=== PATIENT | female | born 1940 | race Caucasian/White ===

== ENCOUNTER 2016-10-15 13:42 | Inpatient (IN) | payer MEDICAID, MEDICARE, OTHER ==
[~2016-10-15] VITALS: Ht 147.3 cm; Wt 46.7 kg
[~2016-10-15 13:42] MED LIST: AMLO10TA80 PO; ASCO100T12 PO; ASPI-1158 PO; FERROUS SULFATE PO; GLIM4TAB2 PO; INSLAN SQ; INSU10VI5 SQ; NITR0.4T3 SL; PANT40TA4 PO; SEVE800T PO; SIMVASTATIN PO; TRAMADOL PO
[2016-10-15] MEDS ORDERED: MORPHINE SULFATE 4 MG/ML CPJ (NOT FOR IM USE) IV STA (15:04)
[2016-10-15] MEDS ORDERED: ONDANSETRON HCL 4MG/2ML VIAL IV STA (15:04)
[2016-10-15] MEDS ORDERED: FAMOTIDINE 20MG/2ML VIAL IV STA (15:04)
[2016-10-15 15:35] LABS: INR 1.1
[2016-10-15 15:36] LABS: CHLORIDE 95 mEq/L (98-107)
[2016-10-15 15:37] LABS: HEMATOCRIT. 32.6 % (36.0-48.0); HEMOGLOBIN. 10.9 g/dL (12.0-16.0); MEAN CORPUSCULAR HEMOGLOBIN 32.9 pg (28.0-32.0); MEAN CORPUSCULAR VOLUME 98.1 fL (81.0-99.0); MEAN PLATELET VOLUME 7.8 fl (7.4-10.4); PLATELET 253 x1000/uL (130-400); RED BLOOD CELL COUNT 3.32 mill/uL (4.2-5.4); RED CELL DISTRIBUTION WIDTH 14.6 % (11.6-14.6)
[2016-10-15 15:38] LABS: CARBON DIOXIDE 28 mEq/L (21-32); ETHANOL BLOOD < 10 mg/dL
[2016-10-15 15:45] LABS: TROPONIN I 0.04 ng/mL (0.00-0.04)
[2016-10-15 16:23] LABS: CLARITY URINE CLEAR (CLEAR); COLOR URINE YELLOW (YELLOW); GLUCOSE URINE NEGATIVE (NEGATIVE); KETONES URINE NEGATIVE (NEGATIVE); LEUKOCYTE ESTERASE URINE NEGATIVE (NEGATIVE); NITRITE URINE NEGATIVE (NEGATIVE); OCCULT BLOOD URINE NEGATIVE (NEGATIVE); PROTEIN URINE 2+ (NEGATIVE); UROBILINOGEN URINE 0.2 E.U./dL (0.2-1.0)
[2016-10-15 16:44] LABS: PLATELET ESTIMATE NORMAL
[2016-10-15 20:35] VITALS: BP 147/56
[2016-10-15] MEDS: BLOOD SUGAR DIAGNOSTIC STRIP TEST SCH (21:30)
[2016-10-15] MEDS ORDERED: DEXTROSE 50% WATER 50ML SYRINGE IV PRN (21:30)
[2016-10-15 21:56] VITALS: BP 147/56
[2016-10-15] MEDS: ONDANSETRON HCL 4MG/2ML VIAL IV PRN (22:10)
[2016-10-15] MEDS ORDERED: PANTOPRAZOLE 40MG DR TABLET PO SCH (22:15)
[2016-10-15] MEDS ORDERED: ACETAMINOPHEN 325MG TABLET PO PRN (22:30)
[2016-10-15] MEDS ORDERED: MORPHINE SULFATE 2 MG/ML CPJ (NOT FOR IM USE) IV PRN (22:30)
[2016-10-15] MEDS: SODIUM CHLORIDE 0.9% 1,000 ML IV SCH (23:19)
[2016-10-15] MEDS: ENOXAPARIN 30MG/0.3ML SYR SUBCUT SCH (23:19)
[2016-10-15] MEDS: PANTOPRAZOLE SODIUM 40 MG/VIAL IV SCH (23:19)
[2016-10-16] VITALS: BP 146/71
[2016-10-16] MEDS: ALBUTEROL (0.083%) 2.5MG/3ML NEB HHN SCH ×4 (02:10→20:20)
[2016-10-16 04:00] VITALS: BP 139/57
[2016-10-16] MEDS: BLOOD SUGAR DIAGNOSTIC STRIP TEST SCH ×4 (05:59→21:32)
[2016-10-16 07:19] LABS: CARBON DIOXIDE 25 mEq/L (21-32); CHLORIDE 98 mEq/L (98-107); CREATINE KINASE 54 IU/L (26-192); HDL CHOLESTEROL 62 mg/dL (40-59); LDL CHOLESTEROL 46 mg/dL (5-100)
[2016-10-16 07:26] LABS: CREATINE KINASE MB FRACTION 4.3 ng/mL (0.5-3.6); TROPONIN I 0.04 ng/mL (0.00-0.04)
[2016-10-16 07:39] LABS: BASOPHILS % 0.4 % (0.0-2.0); EOSINOPHILS % 5.9 % (0.0-5.0); HEMATOCRIT. 27.8 % (36.0-48.0); HEMOGLOBIN. 9.3 g/dL (12.0-16.0); LYMPHOCYTES % 10.9 % (20.0-50.0); MEAN CORPUSCULAR HEMOGLOBIN 33.4 pg (28.0-32.0); MEAN CORPUSCULAR VOLUME 99.4 fL (81.0-99.0); MONOCYTES % 12.1 % (2.0-8.0); NEUTROPHILS % 70.7 % (40.0-76.0); PLATELET 216 x1000/uL (130-400); RED CELL DISTRIBUTION WIDTH 14.4 % (11.6-14.6)
[2016-10-16 08:00] VITALS: BP 123/38
[2016-10-16] MEDS: INSULIN LISPRO 100 UNITS/ML SUBCUT SCH ×4 (08:10→21:00)
[2016-10-16] MEDS: ASPIRIN 81MG TABLET PO SCH (09:00)
[2016-10-16] MEDS: ENOXAPARIN 30MG/0.3ML SYR SUBCUT SCH (09:00)
[2016-10-16 12:00] VITALS: BP 148/70
[2016-10-16] MEDS: PANTOPRAZOLE SODIUM 40 MG/VIAL IV SCH (12:55)
[2016-10-16] MEDS: ONDANSETRON HCL 4MG/2ML VIAL IV PRN (12:55)
[2016-10-16 16:00] VITALS: BP 129/52
[2016-10-16 16:24] LABS: CREATINE KINASE MB FRACTION 4.1 ng/mL (0.5-3.6); TROPONIN I 0.03 ng/mL (0.00-0.04)
[2016-10-16 20:00] VITALS: BP 112/54
[2016-10-16] MEDS ORDERED: EPOETIN ALFA 4000UNITS/ML VIAL SUBCUT SCH (21:00)
[2016-10-17] VITALS: BP 145/84
[2016-10-17] MEDS: ALBUTEROL (0.083%) 2.5MG/3ML NEB HHN SCH ×4 (00:14→21:11)
[2016-10-17 04:00] VITALS: BP 126/50
[2016-10-17] MEDS: SODIUM CHLORIDE 0.9% 1,000 ML IV SCH (05:52)
[2016-10-17] MEDS: BLOOD SUGAR DIAGNOSTIC STRIP TEST SCH ×4 (05:53→20:15)
[2016-10-17 08:00] VITALS: BP 148/58
[2016-10-17] MEDS: PANTOPRAZOLE SODIUM 40 MG/VIAL IV SCH (10:33)
[2016-10-17] MEDS: ENOXAPARIN 30MG/0.3ML SYR SUBCUT SCH (10:33)
[2016-10-17] MEDS: ASPIRIN 81MG TABLET PO SCH (10:33)
[2016-10-17] MEDS: INSULIN LISPRO 100 UNITS/ML SUBCUT SCH ×4 (10:35→20:26)
[2016-10-17 12:00] VITALS: BP 150/79
[2016-10-17 16:00] VITALS: BP 139/74
[2016-10-17 20:00] VITALS: BP 150/60
[2016-10-18] VITALS: BP 135/50
[2016-10-18] MEDS: ALBUTEROL (0.083%) 2.5MG/3ML NEB HHN SCH ×3 (01:19→15:04)
[2016-10-18 04:00] VITALS: BP 138/59
[2016-10-18 05:28] LABS: HEMATOCRIT. 27.4 % (36.0-48.0); HEMOGLOBIN. 9.2 g/dL (12.0-16.0); MEAN CORPUSCULAR HEMOGLOBIN 33.5 pg (28.0-32.0); MEAN CORPUSCULAR VOLUME 99.3 fL (81.0-99.0); MEAN PLATELET VOLUME 7.7 fl (7.4-10.4); PLATELET 202 x1000/uL (130-400); RED BLOOD CELL COUNT 2.75 mill/uL (4.2-5.4); RED CELL DISTRIBUTION WIDTH 14.4 % (11.6-14.6)
[2016-10-18] MEDS: BLOOD SUGAR DIAGNOSTIC STRIP TEST SCH ×3 (07:40→17:40)
[2016-10-18 08:00] VITALS: BP 150/62
[2016-10-18] MEDS: INSULIN LISPRO 100 UNITS/ML SUBCUT SCH ×3 (08:10→17:47)
[2016-10-18] MEDS: ASPIRIN 81MG TABLET PO SCH (09:08)
[2016-10-18] MEDS: PANTOPRAZOLE SODIUM 40 MG/VIAL IV SCH (09:08)
[2016-10-18] MEDS: ENOXAPARIN 30MG/0.3ML SYR SUBCUT SCH (09:09)
[2016-10-18 11:57] LABS: PLATELET ESTIMATE NORMAL
[2016-10-18 12:00] VITALS: BP 153/55
[2016-10-18 16:00] VITALS: BP 148/56
[2016-10-18 19:19] VITALS: BP 122/56
== END 2016-10-18 20:10 | disposition home or self-care (01) | DRG 194 ==
LOC: ER 14:46 → EDBEDREQ 15:14 → EDBEDREQTM 17:53 → ENRESERV 19:47 → 7WST 20:38
PROVIDERS: ADMIT Internal Medicine; ATTEND Internal Medicine
PROC: 5A1D60Z (ICD-10-PCS; principal; 2016-10-16)
DX: I13.2 Hypertensive heart and chronic kidney disease with heart failure and with stage 5 chronic kidney disease, or end stage renal disease (principal); N18.6 End stage renal disease; E11.21 Type 2 diabetes mellitus with diabetic nephropathy; E11.22 Type 2 diabetes mellitus with diabetic chronic kidney disease; I48.92 Unspecified atrial flutter; E11.43 Type 2 diabetes mellitus with diabetic autonomic (poly)neuropathy; K31.84 Gastroparesis; J44.9 Chronic obstructive pulmonary disease, unspecified; I50.9 Heart failure, unspecified; I25.10 Atherosclerotic heart disease of native coronary artery without angina pectoris; I48.91 Unspecified atrial fibrillation; D50.0 Iron deficiency anemia secondary to blood loss (chronic); I70.0 Atherosclerosis of aorta; K83.8 Other specified diseases of biliary tract; E11.51 Type 2 diabetes mellitus with diabetic peripheral angiopathy without gangrene; Z99.2 Dependence on renal dialysis; Z86.73 Personal history of transient ischemic attack (TIA), and cerebral infarction without residual deficits; Z90.49 Acquired absence of other specified parts of digestive tract
CPT/HCPCS: 36415; 71010; 74176; 74181; 76700; 80048; 80053; 80061; 81001; 82550; 82553; 82962; 83605; 83690; 83880; 84443; 84484; 85025; 85610; 87040; 93005; 94640; 94664; 96374; 96375; 99285; C9113; G0482; J0885; J1650; J1815; J2270; J2405; J3490; J7030; J7611

== ENCOUNTER 2016-11-09 13:39 | Observation (INO) | payer OTHER ==
[~2016-11-09] VITALS: Ht 152.4 cm; Wt 49.0 kg
[2016-11-09 16:59] LABS: D-DIMER 1.8 mg/L FEU (<0.50); INR 1.1; PROTHROMBIN TIME 11.1 sec
[2016-11-09 17:02] LABS: CARBON DIOXIDE 32 mEq/L (21-32); CHLORIDE 95 mEq/L (98-107)
[2016-11-09 17:11] LABS: BASOPHILS % 0.6 % (0.0-2.0); HEMATOCRIT. 34.8 % (36.0-48.0); HEMOGLOBIN. 11.5 g/dL (12.0-16.0); LYMPHOCYTES % 16.8 % (20.0-50.0); MEAN CORPUSCULAR HEMOGLOBIN 33.2 pg (28.0-32.0); MEAN CORPUSCULAR VOLUME 100.1 fL (81.0-99.0); MEAN PLATELET VOLUME 7.5 fl (7.4-10.4); MONOCYTES % 11.8 % (2.0-8.0); NEUTROPHILS % 68.8 % (40.0-76.0); PLATELET 199 x1000/uL (130-400); RED BLOOD CELL COUNT 3.47 mill/uL (4.2-5.4); RED CELL DISTRIBUTION WIDTH 14.2 % (11.6-14.6)
[2016-11-09 20:00] VITALS: BP 161/78
[2016-11-09 21:00] VITALS: BP 129/79
[2016-11-09 22:30] VITALS: BP 129/79
[2016-11-09] MEDS ORDERED: ONDANSETRON HCL 4MG/2ML VIAL IV PRN (23:45)
[2016-11-09] MEDS ORDERED: ACETAMINOPHEN 650MG/20.3ML UDC GT PRN (23:45)
[2016-11-10] VITALS (7 sets, daily range): BP systolic 118–163; BP diastolic 67–97
[2016-11-10] MEDS ORDERED: DEXTROSE 50% WATER 50ML SYRINGE IV PRN
[2016-11-10] MEDS ORDERED: HYDROCODONE/ACETAMINOPHEN 5/325MG TABLET PO PRN ×2 (00:15)
[2016-11-10] MEDS ORDERED: NITROGLYCERIN 0.4MG TABLET SL SL PRN (00:15)
[2016-11-10] MEDS ORDERED: TRAMADOL 50MG TABLET PO PRN (00:30)
[2016-11-10] MEDS ORDERED: CEFTRIAXONE 1 G PREMIX 50 ML IV SCH (02:00)
[2016-11-10] MEDS ORDERED: VANCOMYCIN 1 G PREMIX 200 ML IV NR (03:00)
[2016-11-10 06:49] LABS: BASOPHILS % 0.5 % (0.0-2.0); EOSINOPHILS % 1.8 % (0.0-5.0); HEMATOCRIT. 32.2 % (36.0-48.0); HEMOGLOBIN. 10.7 g/dL (12.0-16.0); LYMPHOCYTES % 16.8 % (20.0-50.0); MEAN CORPUSCULAR HEMOGLOBIN 33.3 pg (28.0-32.0); MEAN PLATELET VOLUME 8.2 fl (7.4-10.4); MONOCYTES % 9.9 % (2.0-8.0); PLATELET 176 x1000/uL (130-400); RED BLOOD CELL COUNT 3.22 mill/uL (4.2-5.4); RED CELL DISTRIBUTION WIDTH 14.1 % (11.6-14.6)
[2016-11-10] MEDS: BLOOD SUGAR DIAGNOSTIC STRIP TEST SCH ×3 (07:21→17:20)
[2016-11-10 08:29] LABS: CARBON DIOXIDE 26 mEq/L (21-32); CHLORIDE 95 mEq/L (98-107)
[2016-11-10] MEDS: INSULIN LISPRO 100 UNITS/ML SUBCUT SCH ×3 (08:47→17:50)
[2016-11-10] MEDS: SEVELAMER CARBONATE 800 MG TABLET PO SCH ×3 (08:47→18:46)
[2016-11-10] MEDS: FERROUS SULFATE 325MG TABLET PO SCH ×2 (08:48→18:46)
[2016-11-10] MEDS ORDERED: GLIMEPIRIDE 4MG TABLET PO SCH (09:00)
[2016-11-10] MEDS ORDERED: PANTOPRAZOLE 40MG DR TABLET PO SCH (09:00)
[2016-11-10] MEDS ORDERED: ASCORBIC ACID 250 MG TABLET PO SCH (09:00)
[2016-11-10] MEDS ORDERED: ASPIRIN 81MG EC TABLET PO SCH (09:00)
[2016-11-10] MEDS ORDERED: AMLODIPINE 10MG TABLET PO SCH (09:00)
[2016-11-10] MEDS ORDERED: INSULIN DETEMIR UD 100 UNITS/ML SYR SUBCUT SCH (10:00)
[2016-11-10] MEDS ORDERED: ATORVASTATIN CALCIUM 10MG TABLET PO SCH (21:00)
== END 2016-11-10 23:44 | disposition home or self-care (01) ==
LOC: ER 15:33 → EDBEDREQTM 19:36 → EDBEDREQ 19:36 → ENRESERV 19:51 → INTOOBSV 21:00 → 6WST 21:00
PROVIDERS: ADMIT Internal Medicine; ATTEND Internal Medicine
DX: T82.868A Thrombosis due to vascular prosthetic devices, implants and grafts, initial encounter (principal); E11.22 Type 2 diabetes mellitus with diabetic chronic kidney disease; I12.0 Hypertensive chronic kidney disease with stage 5 chronic kidney disease or end stage renal disease; N18.6 End stage renal disease; D63.1 Anemia in chronic kidney disease; Y83.2 Surgical operation with anastomosis, bypass or graft as the cause of abnormal reaction of the patient, or of later complication, without mention of misadventure at the time of the procedure; Z86.73 Personal history of transient ischemic attack (TIA), and cerebral infarction without residual deficits; Z99.2 Dependence on renal dialysis
CPT/HCPCS: 36415; 71010; 80053; 82962; 83036; 85025; 85379; 85610; 85730; 87040; 93005; 93971; 96365; 96367; 96368; 96372; 99285; G0378; J0696; J1815; J3370; J7030; J7050; 96366

== ENCOUNTER 2017-04-15 13:07 | Inpatient (IN) | payer MEDICAID, OTHER ==
[~2017-04-15] VITALS: Ht 149.9 cm; Wt 43.1 kg
[~2017-04-15 13:07] MED LIST changes: -NITR0.4T3 SL; +NITR0.4T49 SL; +REN800 PO; -SEVE800T PO
[2017-04-15] MEDS ORDERED: MORPHINE SULFATE 4 MG/ML CPJ (NOT FOR IM USE) IV STA (14:50)
[2017-04-15] MEDS ORDERED: ONDANSETRON HCL 4MG/2ML VIAL IV STA (14:50)
[2017-04-15] MEDS ORDERED: MORPHINE SULFATE 10 MG/ML CPJ IV NR (15:15)
[2017-04-15 15:21] LABS: BASOPHILS % 0.7 % (0.0-2.0); EOSINOPHILS % 0.9 % (0.0-5.0); HEMATOCRIT. 31.5 % (36.0-48.0); HEMOGLOBIN. 10.7 g/dL (12.0-16.0); LYMPHOCYTES % 12.1 % (20.0-50.0); MEAN CORPUSCULAR HEMOGLOBIN 33.2 pg (28.0-32.0); MEAN CORPUSCULAR VOLUME 97.9 fL (81.0-99.0); MEAN PLATELET VOLUME 7.6 fl (7.4-10.4); MONOCYTES % 12.2 % (2.0-8.0); NEUTROPHILS % 74.1 % (40.0-76.0); PLATELET 184 x1000/uL (130-400); RED BLOOD CELL COUNT 3.21 mill/uL (4.2-5.4); RED CELL DISTRIBUTION WIDTH 13.5 % (11.6-14.6)
[2017-04-15 15:23] LABS: PROTHROMBIN TIME 10.7 sec (9.4-11.6)
[2017-04-15 15:24] LABS: CHLORIDE 97 mEq/L (98-107)
[2017-04-15 15:29] LABS: CARBON DIOXIDE 29 mEq/L (21-32)
[2017-04-15 17:56] LABS: CLARITY URINE CLEAR (CLEAR); COLOR URINE YELLOW (YELLOW); GLUCOSE URINE NEGATIVE (NEGATIVE); KETONES URINE NEGATIVE (NEGATIVE); LEUKOCYTE ESTERASE URINE TRACE (NEGATIVE); NITRITE URINE NEGATIVE (NEGATIVE); OCCULT BLOOD URINE NEGATIVE (NEGATIVE); PH URINE 6.5 (4.5-8.0); PROTEIN URINE 2+ (NEGATIVE); SPECIFIC GRAVITY URINE 1.011 (1.005-1.030); UROBILINOGEN URINE 0.2 E.U./dL (0.2-1.0)
[2017-04-15 20:30] VITALS: BP 166/60
[2017-04-15] MEDS ORDERED: MAGNESIUM/ALUMINUM HYDROXIDE/SIMETHICONE 30ML UDC PO PRN (23:30)
[2017-04-15] MEDS ORDERED: IPRATROPIUM/ALBUTEROL 0.5-3(2.5)MG/3ML NEB INH PRN (23:30)
[2017-04-15] MEDS ORDERED: GUAIFENESIN 200MG/10ML SUGAR FREE UDC PO PRN (23:30)
[2017-04-15] MEDS ORDERED: ACETAMINOPHEN 325MG TABLET PO PRN (23:30)
[2017-04-15] MEDS ORDERED: DIPHENHYDRAMINE 50MG/ML VIAL IV PRN (23:30)
[2017-04-15] MEDS ORDERED: ONDANSETRON HCL 4MG/2ML VIAL IV PRN (23:30)
[2017-04-15] MEDS ORDERED: DEXTROSE 50% WATER 50ML SYRINGE IV PRN (23:30)
[2017-04-15] MEDS ORDERED: CLONIDINE 0.1MG TABLET PO PRN (23:30)
[2017-04-16] VITALS (7 sets, daily range): BP systolic 136–151; BP diastolic 43–59
[2017-04-16] MEDS: HYDROCODONE/ACETAMINOPHEN 5/325MG TABLET PO PRN ×4 (01:04→17:32)
[2017-04-16] MEDS: SODIUM CHLORIDE 0.9% INJ 3ML FLUSH IVF SCH ×2 (06:01→13:24)
[2017-04-16] MEDS: BLOOD SUGAR DIAGNOSTIC STRIP TEST SCH ×4 (07:38→20:54)
[2017-04-16] MEDS: INSULIN LISPRO 100 UNITS/ML SUBCUT SCH ×4 (07:38→20:53)
[2017-04-16] MEDS ORDERED: GLIMEPIRIDE 4MG TABLET PO SCH (08:10)
[2017-04-16] MEDS: ACYCLOVIR 400 MG TABLET PO SCH ×3 (08:21→17:31)
[2017-04-16] MEDS ORDERED: AMLODIPINE 10MG TABLET PO SCH (09:00)
[2017-04-16] MEDS ORDERED: ASPIRIN 81MG EC TABLET PO SCH (09:00)
== END 2017-04-16 21:55 | disposition home or self-care (01) | DRG 383 ==
LOC: ER 13:39 → 7WST 16:52 → ENRESERV 18:44
PROVIDERS: ADMIT Internal Medicine; ATTEND Internal Medicine
DX: B02.9 Zoster without complications (principal); I12.0 Hypertensive chronic kidney disease with stage 5 chronic kidney disease or end stage renal disease; N18.6 End stage renal disease; E11.22 Type 2 diabetes mellitus with diabetic chronic kidney disease; D64.9 Anemia, unspecified; K57.90 Diverticulosis of intestine, part unspecified, without perforation or abscess without bleeding; Z86.73 Personal history of transient ischemic attack (TIA), and cerebral infarction without residual deficits; Z90.49 Acquired absence of other specified parts of digestive tract; Z99.2 Dependence on renal dialysis; Z79.899 Other long term (current) drug therapy; Z79.82 Long term (current) use of aspirin; Z79.4 Long term (current) use of insulin
CPT/HCPCS: 36415; 71010; 74176; 80053; 81001; 82962; 83605; 83690; 85025; 85610; 93970; 96374; 96375; 99285; J1815; J2270; J2405

== ENCOUNTER 2017-04-20 18:24 | Emergency (ER) | payer MEDICAID ==
[~2017-04-20] VITALS: Ht 147.3 cm; Wt 45.0 kg
[2017-04-20] MEDS ORDERED: MORPHINE SULFATE 10 MG/ML CPJ IM ONE (19:30)
[2017-04-20] MEDS ORDERED: KETOROLAC 30MG/ML VIAL IM ONE (19:30)
[2017-04-21 10:43] VITALS: BP 142/83
== END 2017-04-21 10:45 | disposition home or self-care (01) ==
LOC: ER 18:26
DX: M13.852 Other specified arthritis, left hip (principal); G89.29 Other chronic pain; M79.651 Pain in right thigh; I12.0 Hypertensive chronic kidney disease with stage 5 chronic kidney disease or end stage renal disease; E11.22 Type 2 diabetes mellitus with diabetic chronic kidney disease; N18.6 End stage renal disease; E78.00 Pure hypercholesterolemia, unspecified; Z79.82 Long term (current) use of aspirin; Z79.4 Long term (current) use of insulin; Z99.2 Dependence on renal dialysis
CPT/HCPCS: 73502; 96372; 99284; J1885; J2270; Z7610

== ENCOUNTER 2017-05-04 15:20 | Emergency (ER) | payer MEDICAID ==
[~2017-05-04] VITALS: Ht 152.4 cm; Wt 48.0 kg
[2017-05-04 18:33] LABS: HEMATOCRIT. 29.8 % (36.0-48.0); HEMOGLOBIN. 9.9 g/dL (12.0-16.0); MEAN CORPUSCULAR HEMOGLOBIN 33.4 pg (28.0-32.0); MEAN CORPUSCULAR VOLUME 100.5 fL (81.0-99.0); MEAN PLATELET VOLUME 7.9 fl (7.4-10.4); PLATELET 206 x1000/uL (130-400); RED BLOOD CELL COUNT 2.96 mill/uL (4.2-5.4); RED CELL DISTRIBUTION WIDTH 14.9 % (11.6-14.6)
[2017-05-04 18:38] LABS: PARTIAL THROMBOPLASTIN TIME 26.1 sec (23.4-31.0); PROTHROMBIN TIME 10.8 sec (9.4-11.6)
[2017-05-04 18:44] LABS: CARBON DIOXIDE 29 mEq/L (21-32); CHLORIDE 96 mEq/L (98-107); PHOSPHORUS 3.4 mg/dL (2.5-4.9)
[2017-05-04 18:48] LABS: TROPONIN I 0.02 ng/mL (0.00-0.04)
[2017-05-04 19:09] LABS: PLATELET ESTIMATE NORMAL
[2017-05-05 01:09] VITALS: BP 148/53
== END 2017-05-05 01:11 | disposition home or self-care (01) ==
LOC: ER 15:29
DX: M79.1 Myalgia (principal); M25.50 Pain in unspecified joint; E11.22 Type 2 diabetes mellitus with diabetic chronic kidney disease; I12.0 Hypertensive chronic kidney disease with stage 5 chronic kidney disease or end stage renal disease; N18.6 End stage renal disease; E78.00 Pure hypercholesterolemia, unspecified; Z79.82 Long term (current) use of aspirin; Z79.4 Long term (current) use of insulin; Z99.2 Dependence on renal dialysis
CPT/HCPCS: 36415; 71010; 80053; 83690; 83735; 84100; 84484; 85025; 85610; 85730; 93005; 99285; Z7610

== ENCOUNTER 2017-05-06 13:12 | Inpatient (IN) | payer MEDICAID ==
[~2017-05-06] VITALS: Ht 149.9 cm; Wt 96.2 kg
[2017-05-06] MEDS ORDERED: IBUPROFEN 600MG TABLET PO STA (14:22)
[2017-05-06] MEDS ORDERED: OXYCODONE HCL/ACETAMINOPHEN 5/325MG TABLET PO ONE (15:15)
[2017-05-06 15:46] LABS: HEMATOCRIT. 31.8 % (36.0-48.0); HEMOGLOBIN. 10.4 g/dL (12.0-16.0); MEAN CORPUSCULAR HEMOGLOBIN 33.2 pg (28.0-32.0); MEAN CORPUSCULAR VOLUME 101.4 fL (81.0-99.0); MEAN PLATELET VOLUME 7.9 fl (7.4-10.4); PLATELET 212 x1000/uL (130-400); RED BLOOD CELL COUNT 3.13 mill/uL (4.2-5.4)
[2017-05-06 15:47] LABS: PROTHROMBIN TIME 10.4 sec (9.4-11.6)
[2017-05-06 15:53] LABS: CARBON DIOXIDE 27 mEq/L (21-32); CHLORIDE 93 mEq/L (98-107)
[2017-05-06 16:47] LABS: PLATELET ESTIMATE NORMAL
[2017-05-06] MEDS ORDERED: FUROSEMIDE 100MG/10ML VIAL IV STA (16:54)
[2017-05-06] MEDS ORDERED: DEXTROSE 50% WATER 50ML SYRINGE IV ONE (17:00)
[2017-05-06] MEDS ORDERED: ALBUTEROL (0.083%) 2.5MG/3ML NEB HHN ONE (17:00)
[2017-05-06] MEDS ORDERED: INSULIN REGULAR (HUMULIN R) 300UNITS/3ML IV ONE (17:00)
[2017-05-06] MEDS ORDERED: SODIUM BICARBONATE 8.4% 1 MEQ/ML 50ML SYR IV ONE (17:00)
[2017-05-06 23:45] VITALS: BP 123/38
[2017-05-07] MEDS ORDERED: DEXTROSE 50% WATER 50ML SYRINGE IV PRN (02:15)
[2017-05-07 03:40] VITALS: BP 126/43
[2017-05-07] MEDS: PANTOPRAZOLE 40MG DR TABLET PO SCH (06:47)
[2017-05-07] MEDS: BLOOD SUGAR DIAGNOSTIC STRIP TEST SCH ×4 (06:51→21:07)
[2017-05-07] MEDS: INSULIN LISPRO 100 UNITS/ML SUBCUT SCH ×4 (06:52→21:00)
[2017-05-07 06:59] LABS: HEMATOCRIT. 25.8 % (36.0-48.0); HEMOGLOBIN. 8.8 g/dL (12.0-16.0); MEAN CORPUSCULAR HEMOGLOBIN 34.1 pg (28.0-32.0); MEAN CORPUSCULAR VOLUME 99.7 fL (81.0-99.0); MEAN PLATELET VOLUME 7.8 fl (7.4-10.4); PLATELET 189 x1000/uL (130-400); RED BLOOD CELL COUNT 2.59 mill/uL (4.2-5.4); RED CELL DISTRIBUTION WIDTH 14.8 % (11.6-14.6)
[2017-05-07 08:00] VITALS: BP 123/39
[2017-05-07] MEDS: AMLODIPINE 10MG TABLET PO SCH (09:00)
[2017-05-07] MEDS ORDERED: MEDICATION NOT ON FORMULARY EA (Sevelamer Hcl (Renagel) 800 MG) PO SCH (09:00)
[2017-05-07] MEDS: ASPIRIN 81MG EC TABLET PO SCH (09:27)
[2017-05-07] MEDS: SEVELAMER CARBONATE 800 MG TABLET PO SCH ×3 (09:27→17:35)
[2017-05-07] MEDS: HYDROCODONE/ACETAMINOPHEN 5/325MG TABLET PO PRN ×2 (09:28→17:48)
[2017-05-07] MEDS: INSULIN DETEMIR UD 100 UNITS/ML SYR SUBCUT SCH (09:33)
[2017-05-07 12:00] VITALS: BP 105/26
[2017-05-07 15:33] LABS: PLATELET ESTIMATE NORMAL
[2017-05-07 16:00] VITALS: BP 118/55
[2017-05-07 20:19] VITALS: BP 142/61
[2017-05-07] MEDS: ATORVASTATIN CALCIUM 20MG TABLET PO SCH (21:01)
[2017-05-08 00:31] VITALS: BP 143/44
[2017-05-08] MEDS: HYDROCODONE/ACETAMINOPHEN 5/325MG TABLET PO PRN ×3 (01:59→15:40)
[2017-05-08 04:00] VITALS: BP 148/41
[2017-05-08] MEDS: PANTOPRAZOLE 40MG DR TABLET PO SCH (06:43)
[2017-05-08] MEDS: BLOOD SUGAR DIAGNOSTIC STRIP TEST SCH ×4 (06:47→21:00)
[2017-05-08] MEDS: INSULIN LISPRO 100 UNITS/ML SUBCUT SCH ×4 (06:47→21:00)
[2017-05-08 08:00] VITALS: BP 146/44
[2017-05-08] MEDS: ASPIRIN 81MG EC TABLET PO SCH (08:35)
[2017-05-08] MEDS: SEVELAMER CARBONATE 800 MG TABLET PO SCH ×3 (08:35→17:33)
[2017-05-08] MEDS: AMLODIPINE 10MG TABLET PO SCH (08:35)
[2017-05-08] MEDS: INSULIN DETEMIR UD 100 UNITS/ML SYR SUBCUT SCH (10:18)
[2017-05-08] MEDS: ONDANSETRON HCL 4MG/2ML VIAL IV PRN ×2 (10:55→16:34)
[2017-05-08 12:00] VITALS: BP 170/53
[2017-05-08] MEDS: DEXT 5%/0.45% NACL 1000ML 1,000 ML IV SCH (12:33)
[2017-05-08] MEDS: METOCLOPRAMIDE HCL 10MG/2ML VIAL IV PRN ×2 (12:46→19:05)
[2017-05-08 16:00] VITALS: BP 143/48
[2017-05-08 20:00] VITALS: BP 144/47
[2017-05-08] MEDS: ATORVASTATIN CALCIUM 20MG TABLET PO SCH (22:18)
[2017-05-09] VITALS: BP 138/50
[2017-05-09 04:00] VITALS: BP 152/97
[2017-05-09] MEDS: DEXT 5%/0.45% NACL 1000ML 1,000 ML IV SCH (04:55)
[2017-05-09] MEDS: HYDROCODONE/ACETAMINOPHEN 5/325MG TABLET PO PRN ×3 (05:21→21:31)
[2017-05-09 07:04] LABS: CHLORIDE 100 mEq/L (98-107)
[2017-05-09 07:10] LABS: HEMATOCRIT 27.4 % (36.0-48.0); HEMOGLOBIN 9.2 g/dL (12.0-16.0); MEAN CORPUSCULAR HEMOGLOBIN 33.6 pg (28.0-32.0); MEAN CORPUSCULAR VOLUME 100.6 fL (81.0-99.0); PLATELET 222 x1000/uL (130-400); RED BLOOD CELL COUNT 2.73 mill/uL (4.2-5.4); RED CELL DISTRIBUTION WIDTH 14.2 % (11.6-14.6)
[2017-05-09 07:13] LABS: CARBON DIOXIDE 26 mEq/L (21-32)
[2017-05-09] MEDS: BLOOD SUGAR DIAGNOSTIC STRIP TEST SCH ×4 (07:20→21:31)
[2017-05-09 07:32] VITALS: BP 160/49
[2017-05-09] MEDS: INSULIN LISPRO 100 UNITS/ML SUBCUT SCH ×4 (07:50→21:32)
[2017-05-09] MEDS: METOCLOPRAMIDE HCL 10MG/2ML VIAL IV PRN ×2 (09:33→09:40)
[2017-05-09] MEDS: AMLODIPINE 10MG TABLET PO SCH (09:33)
[2017-05-09] MEDS: ASPIRIN 81MG EC TABLET PO SCH (09:34)
[2017-05-09] MEDS: SEVELAMER CARBONATE 800 MG TABLET PO SCH ×3 (09:34→17:37)
[2017-05-09] MEDS: INSULIN DETEMIR UD 100 UNITS/ML SYR SUBCUT SCH (09:40)
[2017-05-09] MEDS: FAMOTIDINE 20MG/2ML VIAL IV SCH (09:45)
[2017-05-09 11:28] VITALS: BP 148/52
[2017-05-09 16:00] VITALS: BP 117/57
[2017-05-09 20:00] VITALS: BP 113/53
[2017-05-09] MEDS: ATORVASTATIN CALCIUM 20MG TABLET PO SCH (21:31)
[2017-05-10] VITALS: BP 144/73
[2017-05-10 04:00] VITALS: BP 149/62
[2017-05-10] MEDS: HYDROCODONE/ACETAMINOPHEN 5/325MG TABLET PO PRN ×3 (04:59→16:20)
[2017-05-10] MEDS: DEXT 5%/0.45% NACL 1000ML 1,000 ML IV SCH ×3 (06:09→22:42)
[2017-05-10] MEDS: BLOOD SUGAR DIAGNOSTIC STRIP TEST SCH ×4 (06:48→21:01)
[2017-05-10] MEDS: METOCLOPRAMIDE HCL 10MG/2ML VIAL IV PRN (07:31)
[2017-05-10 07:50] VITALS: BP 133/66
[2017-05-10] MEDS: INSULIN LISPRO 100 UNITS/ML SUBCUT SCH ×4 (07:50→21:01)
[2017-05-10] MEDS: ASPIRIN 81MG EC TABLET PO SCH (09:57)
[2017-05-10] MEDS: SEVELAMER CARBONATE 800 MG TABLET PO SCH ×3 (09:57→19:30)
[2017-05-10] MEDS: FAMOTIDINE 20MG/2ML VIAL IV SCH (09:57)
[2017-05-10] MEDS: AMLODIPINE 10MG TABLET PO SCH (09:57)
[2017-05-10 12:00] VITALS: BP 135/46
[2017-05-10] MEDS: ONDANSETRON HCL 4MG/2ML VIAL IV PRN ×2 (14:11→21:14)
[2017-05-10 16:00] VITALS: BP 133/47
[2017-05-10 19:34] VITALS: BP 140/44
[2017-05-10] MEDS: ATORVASTATIN CALCIUM 20MG TABLET PO SCH (20:55)
[2017-05-11 00:39] VITALS: BP 148/50
[2017-05-11] MEDS: HYDROCODONE/ACETAMINOPHEN 5/325MG TABLET PO PRN ×3 (03:46→16:12)
[2017-05-11 04:45] VITALS: BP 153/60
[2017-05-11] MEDS: BLOOD SUGAR DIAGNOSTIC STRIP TEST SCH ×4 (06:39→21:00)
[2017-05-11 08:00] VITALS: BP 152/53
[2017-05-11] MEDS: INSULIN LISPRO 100 UNITS/ML SUBCUT SCH ×4 (08:14→21:00)
[2017-05-11] MEDS: AMLODIPINE 10MG TABLET PO SCH (09:00)
[2017-05-11] MEDS: SEVELAMER CARBONATE 800 MG TABLET PO SCH ×3 (09:32→17:35)
[2017-05-11] MEDS: FAMOTIDINE 20MG/2ML VIAL IV SCH (09:32)
[2017-05-11 12:00] VITALS: BP_SYST 138; BP_SYST 143; BP_DIAS 64; BP_DIAS 65
[2017-05-11] MEDS ORDERED: NA PHOS,M-B/NA PHOS,DI-BA ENEMA 118ML PR PRN (12:00)
[2017-05-11] MEDS: ASPIRIN 81MG EC TABLET PO SCH (13:23)
[2017-05-11] MEDS: LACTULOSE 20G/30ML UDC PO SCH (13:23)
[2017-05-11 16:00] VITALS: BP 147/47
[2017-05-11] MEDS: DEXT 5%/0.45% NACL 1000ML 1,000 ML IV SCH (16:12)
[2017-05-11 20:41] VITALS: BP 148/48
[2017-05-11] MEDS: ATORVASTATIN CALCIUM 20MG TABLET PO SCH (21:06)
[2017-05-11] MEDS ORDERED: DIPHENHYDRAMINE 50MG/ML VIAL IV PRN (22:45)
[2017-05-12 00:38] VITALS: BP 147/46
[2017-05-12 04:00] VITALS: BP 151/42
[2017-05-12] MEDS: BLOOD SUGAR DIAGNOSTIC STRIP TEST SCH ×2 (06:51→12:53)
[2017-05-12] MEDS: INSULIN LISPRO 100 UNITS/ML SUBCUT SCH ×2 (07:33→12:55)
[2017-05-12 08:00] VITALS: BP 154/45
[2017-05-12] MEDS: AMLODIPINE 10MG TABLET PO SCH (08:52)
[2017-05-12] MEDS: SEVELAMER CARBONATE 800 MG TABLET PO SCH ×2 (08:53→14:34)
[2017-05-12] MEDS: ASPIRIN 81MG EC TABLET PO SCH (08:53)
[2017-05-12] MEDS: FAMOTIDINE 20MG/2ML VIAL IV SCH (08:54)
[2017-05-12] MEDS: LACTULOSE 20G/30ML UDC PO SCH (09:00)
[2017-05-12 11:18] VITALS: BP 154/45
[2017-05-12 12:00] VITALS: BP 148/51
[2017-05-12 16:00] VITALS: BP 132/50
== END 2017-05-12 18:00 | disposition home or self-care (01) | DRG 351 ==
LOC: ER 14:26 → 6WST 17:08 → ENRESERV 21:34
PROVIDERS: ADMIT Internal Medicine; ATTEND Internal Medicine
PROC: 5A1D70Z Performance of Urinary Filtration, Intermittent, Less than 6 Hours Per Day (ICD-10-PCS; principal; 2017-05-07)
PROC: 5A1D70Z Performance of Urinary Filtration, Intermittent, Less than 6 Hours Per Day (ICD-10-PCS; 2017-05-09)
PROC: 5A1D70Z Performance of Urinary Filtration, Intermittent, Less than 6 Hours Per Day (ICD-10-PCS; 2017-05-10)
PROC: 5A1D70Z Performance of Urinary Filtration, Intermittent, Less than 6 Hours Per Day (ICD-10-PCS; 2017-05-11)
DX: S49.92XA Unspecified injury of left shoulder and upper arm, initial encounter (principal); E44.0 Moderate protein-calorie malnutrition; E11.21 Type 2 diabetes mellitus with diabetic nephropathy; I12.0 Hypertensive chronic kidney disease with stage 5 chronic kidney disease or end stage renal disease; I48.92 Unspecified atrial flutter; N18.6 End stage renal disease; I48.91 Unspecified atrial fibrillation; E87.8 Other disorders of electrolyte and fluid balance, not elsewhere classified; E87.1 Hypo-osmolality and hyponatremia; I87.1 Compression of vein; E87.5 Hyperkalemia; J44.9 Chronic obstructive pulmonary disease, unspecified; K31.84 Gastroparesis; E11.43 Type 2 diabetes mellitus with diabetic autonomic (poly)neuropathy; Z99.2 Dependence on renal dialysis; E78.5 Hyperlipidemia, unspecified; D63.8 Anemia in other chronic diseases classified elsewhere; E78.00 Pure hypercholesterolemia, unspecified; F41.9 Anxiety disorder, unspecified; H54.7 Unspecified visual loss; X58.XXXA Exposure to other specified factors, initial encounter; K59.03 Drug induced constipation; T40.605A Adverse effect of unspecified narcotics, initial encounter; K80.20 Calculus of gallbladder without cholecystitis without obstruction; Z91.15 Patient's noncompliance with renal dialysis; Z90.49 Acquired absence of other specified parts of digestive tract; Y92.89 Other specified places as the place of occurrence of the external cause; Z79.899 Other long term (current) drug therapy; Z79.82 Long term (current) use of aspirin; Z79.4 Long term (current) use of insulin; Y93.89 Activity, other specified; Y99.8 Other external cause status
CPT/HCPCS: 36415; 73030; 74000; 74181; 76700; 80048; 80053; 82962; 85025; 85027; 85610; 93005; 93971; 94640; 96374; 96375; 96376; 97110; 97162; 97166; 97530; 97535; 99285; J1200; J1815; J1940; J2405; J2765; J3490; J7030; J7611